=== PATIENT | female | born 1940 | race African-American/Black ===

== ENCOUNTER 2019-01-07 16:53 | Emergency (ER) | payer OTHER ==
[2019-01-07] MEDS: morphine 4 MG/ML VIAL IV (17:25)
[2019-01-07] MEDS: ONDANSETRON 4 MG INJ IV (17:25)
[2019-01-07 18:26] LABS: ADD MAN DIFF? NO
[2019-01-07 18:29] LABS: BASOPHIL # 0.1 10^3/ul (0.0-0.1); BASOPHILS % 0.4 % (0.0-2.0); EOSINOPHILS # 0.1 10^3/ul (0.0-0.5); EOSINOPHILS % 0.3 % (0.0-7.0); HEMOGLOBIN 13.8 g/dl (12.0-16.0); LYMPHOCYTES # 2.7 10^3/ul (0.8-2.9); MEAN CORPUSCULAR HEMOGLOBIN 26.8 pg (29.0-33.0); MEAN CORPUSCULAR HGB CONC 31.4 g/dl (32.0-37.0); MEAN CORPUSCULAR VOLUME 85.6 fl (82.0-101.0); MEAN PLATELET VOLUME 10.5 fl (7.4-10.4); MONOCYTE # 0.8 10^3/ul (0.3-0.9); NEUTROPHIL # 12.3 10^3/ul (1.6-7.5); NEUTROPHILS % 76.9 % (39.0-77.0); PLATELET COUNT 361 10^3/UL (140-415); RED BLOOD COUNT 5.14 10^6/ul (4.20-5.40)
[2019-01-07 18:29] LABS: WHITE BLOOD COUNT 16.1 10^3/ul (4.8-10.8)
[2019-01-07] MEDS: HYDROmorphONE 2 MG/ML SYG IM (18:38)
[2019-01-07] MEDS: ONDANSETRON (ODT) 4 MG TAB ODT (18:38)
[2019-01-07 18:54] LABS: ANION GAP 11 (5-13); BLOOD UREA NITROGEN 14 mg/dl (7-20); CALCIUM 9.4 mg/dl (8.4-10.2); CARBON DIOXIDE 20 mmol/L (21-31); CHLORIDE 107 mmol/L (97-110); CREATININE 0.59 mg/dl (0.44-1.00); GLUCOSE 187 mg/dl (70-220); POTASSIUM 4.4 mmol/L (3.5-5.1); SODIUM 138 mmol/L (135-144)
[2019-01-07 19:32] LABS: TROPONIN-I < 0.012 ng/ml (0.000-0.120)
[2019-01-07] MEDS: DEXTROSE 5%-0.9% NACL 1,000 ML IV (20:38)
[2019-01-07] MEDS: HYDROmorphONE 2 MG/ML SYG IV (22:34)
== END 2019-01-07 23:10 | disposition short-term general hospital (02) ==
LOC: E/R 16:53
DX: S42.412A Displaced simple supracondylar fracture without intercondylar fracture of left humerus, initial encounter for closed fracture (principal); I10 Essential (primary) hypertension; E11.649 Type 2 diabetes mellitus with hypoglycemia without coma; R51 Headache; W19.XXXA Unspecified fall, initial encounter; Y92.009 Unspecified place in unspecified non-institutional (private) residence as the place of occurrence of the external cause; Z79.84 Long term (current) use of oral hypoglycemic drugs; Z79.82 Long term (current) use of aspirin
CPT/HCPCS: 70450; 71045; 73080-LT; 80048; 82962; 84484; 85025; 93005; 96372; 96374; 99285-25